=== PATIENT | female | born 1960 | race Caucasian/White ===

== ENCOUNTER 2016-05-07 11:12 | Emergency (ER) | payer OTHER ==
--- NOTE | 2016-05-07 11:41 | PROVIDER DOCUMENTATION ---
HPI-General Adult - General Chief Complaint: General Adult Stated Complaint: PAIN IN BACK UNDER SHOULDERS/NECK Time Seen by Provider: 05/07/16 11:23 Source: patient Allergies/Adverse Reactions: Patient Allergies Allergy/AdvReac Type Severity Reaction Status Date / Time Sulfa (Sulfonamide Allergy Mild RASH Verified 05/07/16 11:31 Antibiotics) [Sulfa(Sulfonamide Antibiotics)] Home Medications: Home Medication List Medication Instructions Recorded Confirmed Last Taken Type Cyclobenzaprine [Flexeril] 10 mg PO DIRECTED #15 tablet 02/04/12 05/07/16 Unknown Rx Esomeprazole Magnesium [Nexium] 20 mg PO DAILY 02/04/12 05/07/16 02/03/12 15:00 History Estrogens, Conjugated [Premarin] 0.625 mg PO DAILY 02/04/12 05/07/16 02/03/12 15 :00 History Meloxicam [Mobic] 7.5 mg PO BID 02/04/12 05/07/16 02/03/12 15:00 History Oxycodone/APAP 10 mg/325 mg 1 each PO DIRECTED #15 tablet 02/04/12 05/07/16 Unknown Rx [Percocet 10-325 mg Tablet] Prednisone 20 mg PO DIRECTED #12 tablet 02/04/12 05/07/16 Unknown Rx Pregabalin [Lyrica] 150 mg PO BID 02/04/12 05/07/16 02/03/12 15:00 History Valsartan/Hydrochlorothiazide 1 each PO DAILY 02/04/12 05/07/16 02/03/12 15:00 History [Diovan Hct 160-25 mg Tablet] - History of Present Illness -Gen Adult Nature of Presenting Problems: 55 y/o F presented with pain in the upper back under both of her shoulder blades. She denies fever, chills, abdominal pain or chest pain. Pain started few days ago at rest, exacerbated by shoulder movement. She has a hx of neck disc surgery. Location of Pain/Injury: reports: neck, upper extremity, back Pain Radiation: reports: back Quality of Pain: reports: aching Severity: reports: severe Onset/Duration: reports: last week Timing: reports: getting worse Context/Activities at Onset: reports: light activity Modifying Factors: improves with: nothing Similar Symptoms Previously?: Yes Recently seen or treated by another doctor?: Yes Review of Systems - Adult - REVIEW OF SYSTEMS - ADULT Constitutional: reports: no symptoms reported Eyes: reports: no symptoms reported Ears, Nose, Mouth & Throat: reports: no symptoms reported Cardiovascular: reports: no symptoms reported Respiratory: reports: no symptoms reported Gastrointestinal: reports: no symptoms reported Genitourinary: reports: no symptoms reported Musculoskeletal: reports: back pain, joint pain, neck pain Integumentary: reports: no symptoms reported Neurological: reports: numbness Psychiatric: reports: no symptoms reported Endocrine: reports: no symptoms reported Hematologic/Lymphatic: reports: no symptoms reported Allergic/Immunologic: reports: no symptoms reported All Other Systems: Reviewed and Negative Past History - Adult - PAST MEDICAL HISTORY-ADULT Review of Records: reports: Nursing Assessment Review, Medications Reviewed Major Childhood Illnesses: reports: denies history Cardiovascular: reports: HTN Respiratory: reports: denies history Gastrointestinal: reports: denies history Genitourinary: reports: denies history Musculoskeletal: reports: chronic pain, intervertebral disc disease, neck/back injury Neurological: reports: denies history Endocrine/Immune: reports: denies history - PRIOR SURGERIES/PROCEDURES Surgical/Procedure History: reports: back/neck Physical Exam-General - PHYSICAL EXAM-ADULT Initial Vital Signs Reviewed: Yes - CONSTITUTIONAL General Appearance: appears well, anxious - EYES Eyes: PERRL/EOMI - HEAD, EARS, NOSE, MOUTH & THROAT HENMT: normocephalic/atraumatic - NECK Neck: limited range of motion, tender lateral, tender midline. negative: meningismus - RESPIRATORY Respiratory: chest non-tender, lungs clear, normal breath sounds - CARDIOVASCULAR Cardiovascular: normal peripheral pulses, regular rate, rhythm - GASTROINTESTINAL (ABDOMEN) Abdominal Exam: normal bowel sounds, soft - MUSCULOSKELETAL Back Exam: decreased range of motion Extremity: non-tender, normal inspection. negative: normal range of motion Peripheral Pulses: dorsalis-pedis (R): 2+, dorsalis-pedis (L): 2+ - SKIN Integumentary: warm/dry - NEUROLOGIC Neurologic: grossly normal - PSYCHIATRIC Psych/Mental Status: oriented x 3, anxious Progress - PLAN OF CARE/RESULTS Progress/Plan/Lab Results: Vital Signs - 24 hr 05/07/16 11:18 Temperature 98.0 F Pulse Rate 79 Respiratory 18 Rate Blood Pressure 150/76 O2 Sat by Pulse 97 Oximetry Laboratory Tests 05/07/16 11:57 WBC 7.70 RBC 4.92 Hgb 14.2 Hct 43.3 MCV 88.0 MCH 28.9 MCHC 32.8 L RDW Std Deviation 14.2 Plt Count 212 MPV 12.4 H Immature Gran % (Auto) 0.3 Neut % (Auto) 63.1 Lymph % (Auto) 27.3 [place] % (Auto) 7.3 Eos % (Auto) 1.7 Baso % (Auto) 0.3 Immature Gran # (Auto) 0.02 Neut # (Auto) 4.87 Lymph # (Auto) 2.10 [place] # (Auto) 0.56 Eos # (Auto) 0.13 Baso # (Auto) 0.02 - REASSESSMENT Reassessment #1 Status: unchanged - XRAY 1 XRAY Study: Chest Impression: Need Further Study XRAY Interpretation: Normal study except for a questionable right basilar nodule. Departure - Departure Time of Disposition Order: 13:11 DIAGNOSIS: Musculoskeletal pain Disposition: HOME 01 Certified Medical Emergency: Emergent Condition: Good Additional Instructions: [facility] Follow-up with [facility] FOR OUTPATIENT FOLLOW_UP OF LUNG NODULE ( May need a CT scan follow-up every 6 months) ED Follow Up Instructions: You have been treated by a care provider in the Emergency Department. These instructions are being provided to you so you can have an understanding of how to care for yourself upon discharge. Upon discharge from the Emergency Department, you are responsible for making arrangements for follow-up care by a physician of your choice. Take all prescribed medications as directed. Return to the Emergency Department immediately for any new or worsening symptoms. You may call the Physician Referral phone number at [phone] to obtain a list of Physicians who are taking new patients. Referrals: Mathew Norris [Primary Care Provider] - Bharath Fonseca MD [STAFF PHYSICIAN] - Call for Appoint. -2 week (XRAY showed evidence of basilar nodule in the right lung. ) Instructions: Musculoskeletal Pain
[2016-05-07 12:08] LABS: MANUAL DIFF NEEDED? NO
[2016-05-07 12:23] LABS: BASO% 0.3 % (0.0-0.8); EOS# 0.13 X1000 (0.0-0.7); EOS% 1.7 % (0.0-10.0); HEMATOCRIT 43.3 % (37.0-47.0); HEMOGLOBIN 14.2 g/dL (12.0-16.0); IMM GRAN# 0.02 X1000 (0.0-0.04); IMM GRAN% 0.3 % (0.0-0.5); LYMPH% 27.3 % (20.5-51.1); MCH 28.9 PG (27-31); MCHC 32.8 g/dL (33-37); MONO# 0.56 X1000 (0.11-0.59); MONO% 7.3 % (1.7-9.3); MPV 12.4 FL (7.4-10.4); NEUT% 63.1 % (42.2-75.2); PLT 212 X1000 (130-400); RBC 4.92 XMIL (4.2-5.4)
--- NOTE | 2016-05-07 12:53 | Diag Imaging Result Document ---
PROCEDURE NAME: CHEST-2 VIEWS - 05/07/2016 FRONTAL AND LATERAL CHEST, 2 VIEWS: FINDINGS: No comparison films. The lungs are well expanded. The heart is not enlarged. The vessels are not distended. No pneumonia. No pleural effusions. No free air beneath the diaphragm. There has been prior surgery to the lower neck and there are surgical clips in the left breast. Questionable nodule in the medial right base. No other abnormality. IMPRESSION: Questionable right basilar nodule, otherwise negative exam.
[2016-05-07 13:28] LABS: SED RATE 20 mm/hr (0-20)
[2016-05-07 14:21] VITALS: BP 142/77
--- NOTE | 2016-05-08 09:23 | EKG Report ---
Test Performed on : 05/07/2016 11:22:01 AM Test Reason : shoulder pain rad to left arm/neck Blood Pressure : / mmHG Vent. Rate : 074 BPM Atrial Rate : 074 BPM P-R Int : 186 ms QRS Dur : 074 ms QT Int : 366 ms P-R-T Axes : -11 009 028 degrees QTc Int : 406 ms Normal sinus rhythm. Normal ECG When compared with ECG of 13-MAY-2009 12:27, No significant change was found Unconfirmed Result
== END 2016-05-07 14:30 | disposition home or self-care (01) ==
LOC: ED 11:12
DX: M79.1 Myalgia (principal); M54.6 Pain in thoracic spine; M54.2 Cervicalgia; R20.0 Anesthesia of skin; M79.602 Pain in left arm; R20.2 Paresthesia of skin; R06.02 Shortness of breath; I10 Essential (primary) hypertension; G89.29 Other chronic pain; Z79.1 Long term (current) use of non-steroidal anti-inflammatories (NSAID); Z79.899 Other long term (current) drug therapy
CPT/HCPCS: 36415; 71020; 85025; 85651; 93005; 99283